=== PATIENT | male | born 1950 | race Two or more races ===

== ENCOUNTER 2018-09-15 10:44 | Outpatient (CLI) | payer OTHER | END 2018-09-15 10:51 | disposition home or self-care (01) | LOC: RAD 501 10:44 | DX: M25.552 Pain in left hip (principal) ==

== ENCOUNTER 2019-03-23 09:31 | Outpatient (CLI) | payer OTHER | END 2019-03-23 09:41 | disposition home or self-care (01) | LOC: RAD 09:31 | DX: Z96.642 Presence of left artificial hip joint (principal) ==